=== PATIENT | female | born 1975 | race Caucasian/White ===

== ENCOUNTER 2018-03-30 09:25 | Emergency (ER) | payer BC ==
[~2018-03-30] VITALS: Ht 170.2 cm; Wt 66.2 kg
[2018-03-30 09:28] VITALS: Ht 170.2 cm; Wt 66.2 kg
[2018-03-30 11:02] VITALS: BP 115/58
== END 2018-03-30 11:09 | disposition home or self-care (01) ==
LOC: ED 09:25
DX: R51 Headache (principal); R11.0 Nausea
CPT/HCPCS: J0780; J1885; Q0163